=== PATIENT | female | born 1980 | race Caucasian/White ===

== ENCOUNTER 2018-09-11 23:35 | Emergency (ER) | payer SELFPAY ==
[~2018-09-11] VITALS: Ht 165.1 cm; Wt 86.2 kg
[~2018-09-11 23:35] MED LIST: ACET-2619
[2018-09-11 23:46] VITALS: BP 103/57
--- NOTE | 2018-09-11 23:49 | NUR ---
PT AMBULATED TO LOBBY.
--- NOTE | 2018-09-12 00:16 | NUR ---
PT AMBULATED TO ER BED 5
--- NOTE | 2018-09-12 00:34 | NUR ---
DR. NOEL BEDSIDE EVALUATING PT
[2018-09-12 00:50] VITALS: BP 108/58
== END 2018-09-12 00:50 | disposition home or self-care (01) ==
LOC: MED 23:35
DX: H92.01 Otalgia, right ear (principal); J34.89 Other specified disorders of nose and nasal sinuses; Z79.1 Long term (current) use of non-steroidal anti-inflammatories (NSAID)
CPT/HCPCS: 99283

== ENCOUNTER 2018-10-24 01:35 | Emergency (ER) | payer SELFPAY ==
[~2018-10-24] VITALS: Ht 157.5 cm; Wt 89.8 kg
[2018-10-24 01:44] VITALS: BP 110/66
--- NOTE | 2018-10-24 01:46 | NUR ---
TO LOBBY A/W BED AMBULATORY
--- NOTE | 2018-10-24 02:13 | NUR ---
PT TO BED 7.
--- NOTE | 2018-10-24 02:15 | NUR ---
38/F PRESENTS TO ED, C/O "NUMBNESS" OR PARESTHESIA TO L CHEST RADIATING TO L ARM, X5 HRS WHICH STARTED WHILE WORKING A [employer]. ALSO REPORTS HEADACHE. PT REPORTS FEELING ANXIOUS. DENIES N/V. PT AWAKE AND ALERT, PERRLA [place], SKIN NORMAL WARM AND DRY, SPO2 100% ON RA, RR 23 EVEN AND REGULAR. BP 95/50, HR 70 EVEN AND REGULAR, NSR ON BEDSIDE MONITOR. DR AARON MADE AWARE. DENIES MED HX, RX OR OTC. DENIES CAFFEINE/ALCOHOL/SUBSTANCE ABUSE.
--- NOTE | 2018-10-24 02:18 | NUR ---
DR AARON MADE AWARE OF PT STATUS. PER ER MD, EKG IS NOT NEEDED.
--- NOTE | 2018-10-24 03:40 | NUR ---
PT SLEEPING IN BED, AROUSABLE TO NAME, RR EVEN AND UNLABORED. VSS. REPORTS IMPROVEMENT IN PAIN, 6/10 "NUMBNESS"/PARESTHESIA TO L CHEST TO L ARM AT THIS TIME. ALL NEEDS MET.
--- NOTE | 2018-10-24 04:18 | NUR ---
DR AARON AT BEDSIDE FOR MSE
[2018-10-24 04:36] VITALS: BP 103/63
== END 2018-10-24 04:36 | disposition home or self-care (01) ==
LOC: MED 01:35
DX: R51 Headache (principal); R20.0 Anesthesia of skin; Z79.899 Other long term (current) drug therapy
CPT/HCPCS: 99283

== ENCOUNTER 2019-02-13 02:54 | Emergency (ER) | payer SELFPAY ==
[~2019-02-13] VITALS: Ht 165.1 cm; Wt 85.7 kg
[2019-02-13 03:04] VITALS: BP 115/69
[2019-02-13] MEDS ORDERED: cefTRIAXone 1,000 MG in LIDOCAINE MPF 1% 2.1 ML IM ONE (04:30)
[2019-02-13 04:49] VITALS: BP 115/69
== END 2019-02-13 04:49 | disposition home or self-care (01) ==
LOC: MED 02:54
DX: N12 Tubulo-interstitial nephritis, not specified as acute or chronic (principal); Z79.899 Other long term (current) drug therapy
CPT/HCPCS: 81002; 81025; 96372; 99283; J0696; J2001

== ENCOUNTER 2020-06-25 11:03 | Emergency (ER) | payer SELFPAY ==
[~2020-06-25] VITALS: Ht 160 cm; Wt 80.3 kg
[2020-06-25 11:07] VITALS: BP 103/78
--- NOTE | 2020-06-25 11:11 | NUR ---
AMBULATED TO BED 11
[2020-06-25] MEDS ORDERED: IBUPROFEN 600 MG TAB PO ONE (11:25)
--- NOTE | 2020-06-25 11:32 | NUR ---
40 Y/O FEMALE COMPLAINS OF CHEST PAIN X 2 MONTHS. PT STATES PAIN 6/10, PRESSURE ON CHEST, NUMBING/TINGLING RADIATING TO RIGHT SHOULDER, INTERMITTENT. PT STATES PRESENCE OF NUMBING ON TOES DURING EPISODE OF CHEST PAIN. PATIENT STATES SOB DURING CHEST PAIN EPISODES, DENIES NAUSEA/VOMITING/DIARRHEA, SWEATING, DIZZINESS, HEADACHE. PT ON MONITOR. BP 107/67, HR 64, SPO2 99% RA. AO4, BREATHING EVEN AND UNLABORED, SKIN WARM AND DRY. BED IN LOWEST POSITION, LOCKED, X1 SIDERAIL UP. PMH - DENIED NKA
[2020-06-25 11:59] LABS: BASOPHILS % (AUTO) 0.5 % (0.0-2.0); EOSINOPHILS # (AUTO) 0.1 K/uL (0-0.4); EOSINOPHILS % (AUTO) 1.8 % (0.0-4.0); HEMATOCRIT 37.7 % (36-48); HEMOGLOBIN 12.5 g/dL (12.0-16.0); LYMPHOCYTES # (AUTO) 1.9 K/uL (2.5-16.5); LYMPHOCYTES % (AUTO) 37.7 % (20.5-51.1); MEAN CORPUSCULAR HEMOGLOBIN 28 pg (27-31); MEAN CORPUSCULAR HGB CONC 33 g/dL (33-37); MEAN CORPUSCULAR VOLUME 85.4 fL (80-94); MONOCYTES # (AUTO) 0.3 K/uL (0.8-1.0); NEUTROPHILS # (AUTO) 2.7 K/uL (1.8-7.7); PLATELET COUNT (AUTO) 346 K/uL (140-450); RED BLOOD CELL COUNT(AUTO) 4.42 MIL/uL (4.20-5.40); RED CELL DISTRIBUTION WIDTH 14.2 % (11.6-13.7); WHITE BLOOD COUNT (AUTO) 5.1 K/uL (4.8-10.8)
[2020-06-25 12:21] LABS: ALBUMIN 3.4 g/dL (3.4-5.0); ANION GAP 10.7 (8-16); CARBON DIOXIDE 26.2 mmol/L (21-32); CREATININE 0.5 mg/dL (0.6-1.3); POTASSIUM 3.9 mmol/L (3.5-5.1); TOTAL BILIRUBIN 0.9 mg/dL (0.0-1.0)
[2020-06-25] MEDS ORDERED: ACET-2619 PO (13:04)
[2020-06-25 13:15] VITALS: BP 103/78
--- NOTE | 2020-06-25 13:16 | NUR ---
Patient discharged with v/s stable. Written and verbal after care instructions given and explained IN [facility]. Patient alert, oriented and verbalized understanding of instructions. Ambulatory with steady gait. All questions addressed prior to discharge. ID band removed. Patient advised to follow up with PMD. Rx of ACETAMINOPHEN given. Patient educated on indication of medication including possible reaction and side effects. Opportunity to ask questions provided and answered.
== END 2020-06-25 13:16 | disposition home or self-care (01) ==
LOC: MED 11:03
DX: R07.89 Other chest pain (principal); R20.0 Anesthesia of skin
CPT/HCPCS: 36415; 71045; 80053; 83690; 84484; 85025; 93005; 99285

== ENCOUNTER 2023-06-12 00:10 | Emergency (ER) | payer MEDICAID, OTHER ==
[~2023-06-12] VITALS: Ht 154.9 cm; Wt 77.1 kg
[~2023-06-12 00:10] MED LIST changes: +ACET-2619 PO
[2023-06-12 00:51] VITALS: BP 101/65; PULSE 62; RESP 18; TEMP 97.7; O2SAT 98
[2023-06-12 01:40] LABS: BASOPHILS % (AUTO) 0.3 % (0.0-2.0); EOSINOPHILS # (AUTO) 0.2 K/uL (0-0.4); EOSINOPHILS % (AUTO) 3.2 % (0.0-4.0); HEMATOCRIT 37.4 % (36-48); HEMOGLOBIN 12.4 g/dL (12.0-16.0); LYMPHOCYTES # (AUTO) 1.7 K/uL (2.5-16.5); LYMPHOCYTES % (AUTO) 22.9 % (20.5-51.1); MEAN CORPUSCULAR HEMOGLOBIN 27 pg (27-31); MEAN CORPUSCULAR HGB CONC 33 g/dL (33-37); MONOCYTES # (AUTO) 0.4 K/uL (0.8-1.0); MONOCYTES % (AUTO) 6.1 % (1.7-9.3); NEUTROPHILS # (AUTO) 4.9 K/uL (1.8-7.7); NEUTROPHILS % (AUTO) 67.5 % (42.2-75.2); PLATELET COUNT (AUTO) 382 K/uL (140-450); RED BLOOD CELL COUNT(AUTO) 4.56 MIL/uL (4.20-5.40); RED CELL DISTRIBUTION WIDTH 15.4 % (11.6-13.7); WHITE BLOOD COUNT (AUTO) 7.3 K/uL (4.8-10.8)
[2023-06-12] MEDS: NACL 0.9% 1,000 ML IV ONE (01:48)
[2023-06-12 01:57] LABS: APPEARANCE,URINE SL CLOUDY (CLEAR); BILIRUBIN,URINE NEGATIVE (NEGATIVE); BLOOD, URINE NEGATIVE (NEGATIVE); COLOR,URINE YELLOW (YELLOW); LEUKOCYTE ESTERASE ,URINE 2+ (NEGATIVE); NITRITE, URINE NEGATIVE (NEGATIVE); PROTEIN,URINE NEGATIVE (NEGATIVE); UGLUCOSE NEGATIVE (NEGATIVE); UROBILINOGEN,URINE 0.2 EU/dL (0.2 - 1)
[2023-06-12 02:09] LABS: BACTERIA,URINE 10-30 (MOD) /HPF (None Seen); MUCUS,URINE 1+ /LPF (None Seen); RBC,URINE 0-5 /HPF (0-5); SQUAMOUS EPITHELIAL CELL,UR 4-10 (MOD) /LPF (0-3 (FEW))
[2023-06-12 02:16] LABS: FLU B ANTIGEN NEGATIVE (NEGATIVE)
[2023-06-12 02:17] LABS: FLU A ANTIGEN POSITIVE (NEGATIVE)
[2023-06-12 02:21] LABS: ALANINE AMINOTRANSFERASE 30 U/L (12-78); ALBUMIN 3.5 g/dL (3.4-5.0); ALKALINE PHOSPHATASE 95 U/L (50-136); ASPARTATE AMINOTRANSFERASE 24 U/L (15-37); BILIRUBIN,DIRECT 0.2 mg/dL (0.0-0.3); TOTAL BILIRUBIN 0.9 mg/dL (0.0-1.0); TOTAL PROTEIN, SERUM 8.4 g/dL (6.4-8.2)
[2023-06-12 02:28] LABS: ANION GAP 11.5 (8-16); CALCIUM 8.9 mg/dL (8.5-10.1); CARBON DIOXIDE 27.9 mmol/L (21-32); CREATININE 0.7 mg/dL (0.6-1.3); POTASSIUM 3.4 mmol/L (3.5-5.1)
[2023-06-12] MEDS ORDERED: cefTRIAXone 1,000 MG VIAL ONE (02:31)
[2023-06-12 02:35] LABS: LACTIC ACID 1.5 mmol/L (0.4-2.0)
[2023-06-12] MEDS: KETOROLAC 30 MG/ML VIAL IVP ONE (03:03)
[2023-06-12] MEDS: OSELTAMIVIR PHOSPHATE 75 MG CAP PO ONE (03:19)
[2023-06-12] MEDS ORDERED: ACET-10509 PO (03:32)
[2023-06-12] MEDS ORDERED: NITR100C7 PO (03:32)
[2023-06-12] MEDS ORDERED: TAM75 PO (03:32)
[2023-06-12 03:50] VITALS: BP 104/66; PULSE 72; RESP 18; TEMP 98.1; O2SAT 98
== END 2023-06-12 03:51 | disposition home or self-care (01) ==
LOC: MED 00:10
DX: J10.1 Influenza due to other identified influenza virus with other respiratory manifestations (principal); Z20.822 Contact with and (suspected) exposure to COVID-19; N39.0 Urinary tract infection, site not specified; E87.6 Hypokalemia; Z79.899 Other long term (current) drug therapy
CPT/HCPCS: 36415; 71045; 80048; 80076; 81001; 82553; 83605; 83880; 84484; 85025; 87040; 87086; 87426; 87804; 93005; 96361; 96365; 96375; 99285; J0696; J1885; J7030; Q0092

== ENCOUNTER 2023-11-03 20:08 | Emergency (ER) | payer OTHER ==
[~2023-11-03] VITALS: Ht 154.9 cm; Wt 76.2 kg
[~2023-11-03 20:08] MED LIST changes: +ACET-10509 PO; +NITR100C7 PO; +TAM75 PO
[2023-11-03 20:13] VITALS: BP 99/62; PULSE 78; RESP 20; TEMP 98; O2SAT 97
[2023-11-03] MEDS ORDERED: VANCOMYCIN 1,000 MG VIAL ONE ×2 (21:01)
[2023-11-03 21:07] LABS: BASOPHILS % (AUTO) 0.6 % (0.0-2.0); EOSINOPHILS # (AUTO) 0.2 K/uL (0-0.4); EOSINOPHILS % (AUTO) 2.9 % (0.0-4.0); HEMATOCRIT 35.1 % (36-48); HEMOGLOBIN 11.4 g/dL (12.0-16.0); LYMPHOCYTES # (AUTO) 2.2 K/uL (2.5-16.5); LYMPHOCYTES % (AUTO) 26.3 % (20.5-51.1); MEAN CORPUSCULAR HEMOGLOBIN 26 pg (27-31); MEAN CORPUSCULAR HGB CONC 33 g/dL (33-37); MEAN CORPUSCULAR VOLUME 80.4 fL (80-94); MONOCYTES # (AUTO) 0.5 K/uL (0.8-1.0); MONOCYTES % (AUTO) 6.3 % (1.7-9.3); NEUTROPHILS # (AUTO) 5.5 K/uL (1.8-7.7); NEUTROPHILS % (AUTO) 63.9 % (42.2-75.2); PLATELET COUNT (AUTO) 431 K/uL (140-450); RED BLOOD CELL COUNT(AUTO) 4.37 MIL/uL (4.20-5.40); RED CELL DISTRIBUTION WIDTH 16.9 % (11.6-13.7); WHITE BLOOD COUNT (AUTO) 8.5 K/uL (4.8-10.8)
[2023-11-03] MEDS: VANCOMYCIN 1,000 MG in DEXTROSE 5% 250 ML IV ONE (21:10)
[2023-11-03] MEDS: KETOROLAC 30 MG/ML VIAL IVP ONE (21:11)
[2023-11-03 21:17] LABS: ANION GAP 12.2 (8-16); CALCIUM 8.8 mg/dL (8.5-10.1); CARBON DIOXIDE 26.6 mmol/L (21-32); CREATININE 0.6 mg/dL (0.6-1.3); POTASSIUM 3.8 mmol/L (3.5-5.1)
[2023-11-03 23:07] VITALS: BP 96/58; PULSE 60; RESP 18; O2SAT 97
[2023-11-04] MEDS ORDERED: BACI-105 TP (00:25)
== END 2023-11-04 00:57 | disposition home or self-care (01) ==
LOC: MED 20:08
DX: S91.011A Laceration without foreign body, right ankle, initial encounter (principal); L03.115 Cellulitis of right lower limb; L08.89 Other specified local infections of the skin and subcutaneous tissue; Z79.899 Other long term (current) drug therapy; W01.0XXA Fall on same level from slipping, tripping and stumbling without subsequent striking against object, initial encounter; Y92.89 Other specified places as the place of occurrence of the external cause; Y93.89 Activity, other specified; Y99.8 Other external cause status
CPT/HCPCS: 36415; 73700; 80048; 83605; 85025; 85651; 86140; 87040; 87070; 87186; 87205; 96365; 96366; 96375; 99285; J1885; J3370; 87075